=== PATIENT | female | born 1960 | race Caucasian/White ===

== ENCOUNTER 2016-11-11 08:43 | Emergency (ER) | payer BC ==
[2016-11-11 09:05] VITALS: BP 150/75
--- NOTE | 2016-11-11 10:00 | UC ---
Lower Extremity/Ankle HPI - HPI Summary HPI Summary: left foot injury, fell on foot yesterday afternoon. she said her leg buckled when she got up from the kitchen table and fell fwd onto the cough. her left foot everted as she fell fwd. no numbing or tingling. It feels better when she has her shoe on and is able to ambulate with shoe on. mild bruising and swelling laterally. pain is at lateral left ankle. - History of Current Complaint Chief Complaint: UCLowerExtremity Stated Complaint: LEFT FOOT INJURY Time Seen by Provider: 11/11/16 09:54 - Allergies/Home Medications Allergies/Adverse Reactions: Allergies Allergy/AdvReac Type Severity Reaction Status Date / Time No Known Allergies Allergy Verified 11/11/16 08:52 Home Medications: Home Medications Irbesartan [Avapro] 300 mg PO DAILY 11/11/16 [History Confirmed 11/11/16] PMH/Surg Hx/FS Hx/Imm Hx Previously Healthy: Yes Cardiovascular History Of: Reports: Hypertension - Surgical History Surgical History: None - Family History Known Family History: Positive: Hypertension - Social History Alcohol Use: None Substance Use Type: None Smoking Status (MU): Heavy Every Day Tobacco Smoker Review of Systems Constitutional: Negative Skin: Negative Eyes: Negative ENT: Negative Respiratory: Negative Cardiovascular: Negative Gastrointestinal: Negative Genitourinary: Negative Motor: Negative Neurovascular: Negative Musculoskeletal: Other: - left ankle pain Neurological: Negative Psychological: Negative All Other Systems Reviewed And Are Negative: Yes Physical Exam Triage Information Reviewed: Yes Appearance: Well-Appearing, Well-Nourished - ambulates with limp, but able to bear weight. Vital Signs: Initial Vital Signs Temp 99.0 F 11/11/16 08:47 Pulse 85 11/11/16 08:47 Resp 18 11/11/16 08:47 BP 150/75 11/11/16 08:47 Pulse Ox 100 11/11/16 08:47 Vital Signs Reviewed: Yes Eye Exam: Normal ENT Exam: Normal Neck exam: Normal Respiratory Exam: Normal Respiratory: Positive: Lungs clear, Normal breath sounds Cardiovascular Exam: Normal Cardiovascular: Positive: RRR, No Murmur, Pulses Normal, Brisk Capillary Refill Abdominal Exam: Normal Abdomen Description: Positive: Nontender, Soft Musculoskeletal: Positive: Other: - left lateral ankle with mild swelling and minimal tenderness. Good ROM, mortise intact. possible minimal bruising in that area as well. no tenderness along any 5 metatarsals plantar or dorsal aspects. CR brisk, + 2 DP/PT pulses intact. Neurological Exam: Normal Psychological Exam: Normal Skin Exam: Normal Lower Extremity Course/Dx - Course Course Of Treatment: Left ankle xray - NO ACUTE OSSEOUS INJURY. IF SYMPTOMS PERSIST, RECOMMEND REPEAT IMAGING. reviewed with pt. - Differential Dx/Diagnosis Differential Diagnosis/HQI/PQRI: Contusion, Fracture (Closed), Sprain, Strain Provider Diagnoses: left ankle sprain Discharge - Discharge Plan Condition: Stable Disposition: HOME Patient Education Materials: Ankle Sprain (ED), Ankle Exercises (GEN) Forms: *Work Release Referrals: Non Staff,Doctor [Primary Care Provider] - 2 Days Dwayne Crawford [Nurse Practitioner] - Additional Instructions: We are wrapping your ankle for you and giving you crutches. Ice frequently with towel barrier 20 mins on/20 mins off. tylenol for pain. good shoe support advised. Your xrays should be repeated if your symptoms do not show improvement.
--- NOTE | 2016-11-11 10:46 | RAD ---
HISTORY: Left lateral ankle pain, injury COMPARISONS: None VIEWS: 3, Frontal, lateral, and oblique views of the left ankle FINDINGS: BONE DENSITY: Normal. BONES: There is no displaced fracture. JOINTS: There is no arthropathy. ALIGNMENT: There is no dislocation. SOFT TISSUES: Unremarkable. OTHER FINDINGS: None. IMPRESSION: NO ACUTE OSSEOUS INJURY. IF SYMPTOMS PERSIST, RECOMMEND REPEAT IMAGING.
== END 2016-11-11 11:29 | disposition home or self-care (01) ==
LOC: UCCORT 08:43
DX: S93.402A Sprain of unspecified ligament of left ankle, initial encounter (principal); W19.XXXA Unspecified fall, initial encounter; Y93.9 Activity, unspecified; Y92.9 Unspecified place or not applicable; F17.210 Nicotine dependence, cigarettes, uncomplicated
CPT/HCPCS: 99203; G0463

== ENCOUNTER 2017-11-06 13:42 | Emergency (ER) | payer BC ==
[2017-11-06 14:09] VITALS: BP 141/87
== END 2017-11-06 16:32 | disposition left against medical advice (07) ==
LOC: UCCORT 13:42
DX: R68.89 Other general symptoms and signs (principal); Z53.21 Procedure and treatment not carried out due to patient leaving prior to being seen by health care provider

== ENCOUNTER 2017-11-09 09:00 | Emergency (ER) | payer BC ==
[2017-11-09 10:31] VITALS: BP 146/75
--- NOTE | 2017-11-09 10:44 | ED ---
Lower Extremity - HPI Summary HPI Summary: 57 yr old female with the complaint of rash to the bottom of the right foot. Onst 5-6 days ago. Initially a rust colored spot or two and now about 10 spots equal in size and not painful at all. Patient reports it seems to slightly make the foot area with the spots feel tingly. She has mild itch. She has not been feeling ill, no fever. No rash anywhere else. - History of Current Complaint Chief Complaint: UCLowerExtremity Stated Complaint: SKIN COMPLAINT SOLE OF FEET Time Seen by Provider: 11/09/17 10:30 Pain Intensity: 0 - Allergies/Home Medications Allergies/Adverse Reactions: Allergies Allergy/AdvReac Type Severity Reaction Status Date / Time No Known Allergies Allergy Verified 11/09/17 10:25 PMH/Surg Hx/FS Hx/Imm Hx Cardiovascular History: Reports: Hx Hypertension Infectious Disease History: No Infectious Disease History: Denies: Traveled Outside the [place] in Last 30 Days - Family History Known Family History: Positive: Hypertension - Social History Alcohol Use: Rare Substance Use Type: Reports: None Smoking Status (MU): Heavy Every Day Tobacco Smoker Type: Cigarettes Amount Used/How Often: 1/2PPD Review of Systems Positive: Other - rash on the bottom of right foot All Other Systems Reviewed And Are Negative: Yes Physical Exam Triage Information Reviewed: Yes Vital Signs On Initial Exam: Initial Vitals Temp Pulse Resp BP Pulse Ox 98.5 F 73 16 146/75 99 11/09/17 10:26 11/09/17 10:26 11/09/17 10:26 11/09/17 10:26 11/09/17 10:26 Vital Signs Reviewed: Yes Appearance: Positive: Well-Appearing, No Pain Distress Head/Face: Positive: Normal Head/Face Inspection ENT: Positive: Pharynx normal Neck: Positive: Nontender Respiratory/Lung Sounds: Positive: Clear to Auscultation, Breath Sounds Present Cardiovascular: Positive: RRR. Negative: Murmur Abdomen Description: Positive: Nontender Musculoskeletal: Positive: Strength/ROM Intact, Other - She has strong DP and PT pulse right foot and left foot. Feet symmetric in size, temperature. She has small rust colored dots about the size of 3-4 mm in diameter, and slightly raised. Non tender, and not fluid filled. location lateral right mid plantar surface foot Neurological: Positive: Sensory/Motor Intact, Alert, Oriented to Person Place, Time, CN Intact II-III Psychiatric: Positive: Normal - [place] Coma Scale Best Eye Response: 4 - Spontaneous Best Motor Response: 6 - Obeys Commands Best Verbal Response: 5 - Oriented Coma Scale Total: 15 Diagnostics - Vital Signs Vital Signs Temp Pulse Resp BP Pulse Ox 11/09/17 10:26 98.5 F 73 16 146/75 99 - Laboratory Lab Statement: Any lab studies that have been ordered have been reviewed, and results considered in the medical decision making process. Lower Extremity Course/Dx - Course Course Of Treatment: 57 yr old with localized rash over the lateral right foot plantar surface. Plan dc home in good condition. referred to podiatry for follow up. - Diagnoses Provider Diagnoses: Rash Discharge - Discharge Plan Condition: Good Disposition: HOME Patient Education Materials: Acute Rash (ED), Hypertension (ED) Referrals: Non Staff,Doctor [Primary Care Provider] - Additional Instructions: Anthony Arellano DPM 3.0 1 review [employer] in [place], [place] Directions Address: [address] [place] [address] Open today [id number] Follow up with this foot doctor as an outpatient.
== END 2017-11-09 10:49 | disposition home or self-care (01) ==
LOC: UCCORT 09:00
DX: R21 Rash and other nonspecific skin eruption (principal); F17.210 Nicotine dependence, cigarettes, uncomplicated
CPT/HCPCS: 99211; G0463

== ENCOUNTER 2018-05-16 09:09 | Emergency (ER) | payer BC ==
[2018-05-16 09:59] VITALS: BP 151/67
--- NOTE | 2018-05-16 10:07 | UC ---
Complaint Female HPI - HPI Summary HPI Summary: 57-year-old female presents with 3-4 day history of vaginal itching and discharge. Describes discharge as thin, clear, and watery. Denies any foul odor, dysuria, frequency, urgency, hematuria, abdominal pain, back/flank pain, or abnormal vaginal bleeding. She is postmenopausal and not sexually active. Patient states that she performed a home test for yeast infection and that it suggested an elevated pH level. - History Of Current Complaint Chief Complaint: UCGU Stated Complaint: PERSONAL Time Seen by Provider: 05/16/18 10:00 Hx Obtained From: Patient ?: No Onset/Duration: Gradual Onset, Lasting Days Timing: Constant Severity Initially: Mild Severity Currently: Mild Pain Intensity: 0 Character: Burning Aggravating Factor(s): Nothing Alleviating Factor(s): Nothing Associated Signs And Symptoms: Positive: Vaginal Discharge. Negative: Fever, Back Pain, Nausea, Vomiting(# Of Episodes =), Genital Swelling, Genital Blisters - Allergies/Home Medications Allergies/Adverse Reactions: Allergies Allergy/AdvReac Type Severity Reaction Status Date / Time No Known Allergies Allergy Verified 11/09/17 10:25 PMH/Surg Hx/FS Hx/Imm Hx Previously Healthy: Yes Cardiovascular History: Hypertension - Surgical History Surgical History: None - Family History Known Family History: Positive: Hypertension - Social History Occupation: Employed Full-time Lives: With Family Alcohol Use: Rare Substance Use Type: None Smoking Status (MU): Heavy Every Day Tobacco Smoker Type: Cigarettes Amount Used/How Often: 1/2PPD Have You Smoked in the Last Year: Yes Household Exposure Type: Cigarettes Review of Systems Constitutional: Negative Gastrointestinal: Negative Genitourinary: Vaginal/Penile Burning, Vaginal/Penile Itching, Vaginal/Penile Discharge Is Patient Immunocompromised?: No All Other Systems Reviewed And Are Negative: Yes Physical Exam Triage Information Reviewed: Yes Appearance: Well-Appearing, No Pain Distress, Well-Nourished Vital Signs: Initial Vital Signs Temp 98.7 F 05/16/18 09:52 Pulse 63 05/16/18 09:52 Resp 16 05/16/18 09:52 BP 151/67 05/16/18 09:52 Pulse Ox 99 05/16/18 09:52 Vital Signs Reviewed: Yes Respiratory Exam: Normal Cardiovascular Exam: Normal Abdominal Exam: Normal Bowel Sounds: Positive: Present Pelvic Exam: Positive: Other - Deferred Neurological: Positive: Alert Skin Exam: Normal Diagnostics - Laboratory Diagnostic Studies Completed/Ordered: POC urinalysis was normal. Complaint Female Dx - Course Course Of Treatment: 57-year-old postmenopausal female presents with 3-4 days of vaginal itching and discharge. She did perform a home yeast infection test that she reports suggested an elevated pH level. Patient is also reporting a thin clear discharge which is not consistent with a vaginal yeast infection however she states the discharge has no odor and considering that she is not sexually active I think that DVT is less likely however we will test for both yeast and BV today and start her on treatment for a vaginal yeast infection pending these results. - Differential Dx/Diagnosis Differential Diagnosis/HQI/PQRI: Urinary Tract Infection, Other - Bacterial vaginosis; atrophic vagintitis Provider Diagnoses: vaginal yeast infection Discharge - Sign-Out/Discharge Documenting (check all that apply): Patient Departure All imaging exams completed and their final reports reviewed: No Studies - Discharge Plan Condition: Stable Disposition: HOME Prescriptions: Miconazole Nitrate [Monistat 3] 4 % VA BEDTIME #1 cre Patient Education Materials: Vaginitis (ED) Referrals: No Primary Care Phys,NOPCP [Primary Care Provider] - Additional Instructions: Your symptoms are suggestive of a vaginal yeast infection however I cannot rule out the possibility of bacterial vaginosis at this time. I have sent a swab for testing for both of these conditions. We should have the results of this by tomorrow. Start using Monistat 1 applicator full into the vagina once daily at bedtime for 3 days. If the testing indicates that you need to be on different treatment we will contact you. Your blood pressure in the clinic today was elevated. He should have this evaluated urgently. Please establish with a primary care provider or follow up with Dr. Leger within the next 3 days since he prescribed her Avapro. Seek immediate medical attention if you develop any fever greater than 100.5 F, abdominal pain, abnormal vaginal bleeding, or any worsening of symptoms. - Billing Disposition and Condition Condition: STABLE Disposition: Home
== END 2018-05-16 10:57 | disposition home or self-care (01) ==
LOC: UCCORT 09:09
DX: B37.3 Candidiasis of vulva and vagina (principal); F17.210 Nicotine dependence, cigarettes, uncomplicated; I10 Essential (primary) hypertension
CPT/HCPCS: 81003; 87480; 87510; 99212; G0463

== ENCOUNTER 2018-05-27 15:39 | Emergency (ER) | payer BC ==
[2018-05-27 16:17] VITALS: BP 127/70
--- NOTE | 2018-05-27 16:24 | UC ---
Complaint Female HPI - HPI Summary HPI Summary: Pt c/o urinary frequency and dysuria, outer vaginal itching, discomfort and bloody discharge. . Pt was seen here on 05/20/18 and given RX for monistat. Pt used RX as prescribed with no improvement. Pt is not sexually active. Pt states she had colonoscopy ~3 weeks ago and has hx of kidney disease. Pt has not had pap smear in 10 + years - History Of Current Complaint Chief Complaint: UCGU Stated Complaint: URINARY/PERSONAL Time Seen by Provider: 05/27/18 16:21 Hx Obtained From: Patient ?: No Onset/Duration: Sudden Onset, Lasting Weeks, Still Present Timing: Constant Severity Initially: Mild Severity Currently: Mild Pain Intensity: 2 Character: Burning Aggravating Factor(s): Urination Alleviating Factor(s): Nothing Associated Signs And Symptoms: Positive: Vaginal Bleeding/Discharge - Risk Factors Ectopic Risk Factor: Negative Ovarian Torsion Risk Factor: Negative - Allergies/Home Medications Allergies/Adverse Reactions: Allergies Allergy/AdvReac Type Severity Reaction Status Date / Time No Known Allergies Allergy Verified 05/27/18 16:17 PMH/Surg Hx/FS Hx/Imm Hx Previously Healthy: Yes GI/ History: Renal Disease - Surgical History Surgical History: None - Family History Known Family History: Positive: Hypertension - Social History Occupation: Employed Full-time Lives: With Family Alcohol Use: Rare Substance Use Type: None Smoking Status (MU): Heavy Every Day Tobacco Smoker Type: Cigarettes Amount Used/How Often: 1/2PPD Have You Smoked in the Last Year: Yes Household Exposure Type: Cigarettes Review of Systems Constitutional: Negative Skin: Negative Eyes: Negative ENT: Negative Respiratory: Negative Cardiovascular: Negative Gastrointestinal: Negative Genitourinary: Dysuria, Vaginal/Penile Burning, Vaginal/Penile Itching, Abnormal Bleeding - pt was advised to see PCP as soon as possible. Motor: Negative Neurovascular: Negative Musculoskeletal: Negative Neurological: Negative Psychological: Negative Is Patient Immunocompromised?: No All Other Systems Reviewed And Are Negative: Yes Physical Exam Triage Information Reviewed: Yes Appearance: Well-Appearing Vital Signs: Initial Vital Signs Temp 98.8 F 05/27/18 16:12 Pulse 85 05/27/18 16:12 Resp 16 05/27/18 16:12 BP 127/70 05/27/18 16:12 Pulse Ox 96 05/27/18 16:12 Vital Signs Reviewed: Yes Eye Exam: Normal ENT: Positive: Hearing grossly normal Dental Exam: Normal Neck exam: Normal Respiratory: Positive: No respiratory distress Cardiovascular Exam: Normal Abdominal Exam: Normal Pelvic Exam: Positive: Other - pt declined pelvic exam Musculoskeletal Exam: Normal Neurological Exam: Normal Psychological Exam: Normal Skin Exam: Normal Complaint Female Dx - Course Course Of Treatment: pt declined pelvic exam as she stated she is establishing care with new PCP Pt was told to seek care TAMMY if symptoms worsen - Differential Dx/Diagnosis Differential Diagnosis/HQI/PQRI: Cervicitis, Urinary Tract Infection Provider Diagnoses: UTI. abnormal vaginal bleeding Discharge - Sign-Out/Discharge Documenting (check all that apply): Patient Departure All imaging exams completed and their final reports reviewed: No Studies - Discharge Plan Condition: Stable Disposition: HOME Prescriptions: Nitrofurantoin Monohyd/M-Cryst [Macrobid 100 mg Capsule] 100 mg PO Q12H #14 cap Patient Education Materials: Urinary Tract Infection in Women (ED) Referrals: Dwayne Crawford [Primary Care Provider] - As Soon As Possible Additional Instructions: Please follow up with your PCP as soon as possible. Please note that if your symptoms worsen please seek care as soon as possible. - Billing Disposition and Condition Condition: STABLE Disposition: Home
[2018-05-27] MEDS ORDERED: Nitrofurantoin Macrocrystals* 50 MG CAP PO ONE (16:54)
[2018-05-27] MEDS ORDERED: Phenazopyridine TAB* 100 MG PO ONE (16:55)
--- NOTE | 2018-05-30 07:27 | UC ---
- Progress Note Progress Note: negative culture can stop antibiotics recheck with PCP Discharge - Sign-Out/Discharge Documenting (check all that apply): Patient Departure All imaging exams completed and their final reports reviewed: No Studies - Discharge Plan Condition: Stable Disposition: HOME Prescriptions: Nitrofurantoin Monohyd/M-Cryst [Macrobid 100 mg Capsule] 100 mg PO Q12H #14 cap Patient Education Materials: Urinary Tract Infection in Women (ED) Referrals: Dwayne Crawford [Primary Care Provider] - As Soon As Possible Additional Instructions: Please follow up with your PCP as soon as possible. Please note that if your symptoms worsen please seek care as soon as possible. - Billing Disposition and Condition Condition: STABLE Disposition: Home
== END 2018-05-27 17:09 | disposition home or self-care (01) ==
LOC: UCCORT 15:39
DX: N39.0 Urinary tract infection, site not specified (principal); N93.9 Abnormal uterine and vaginal bleeding, unspecified; F17.210 Nicotine dependence, cigarettes, uncomplicated
CPT/HCPCS: 81003; 87086; 99212; A9270-GY; G0463